=== PATIENT | male | born 1975 | race Caucasian/White ===

== ENCOUNTER 2017-10-11 06:29 | Day surgery (SDC) | payer BC, OTHER ==
[2017-10-10 11:47] VITALS: BMI 37.1
[~2017-10-11 06:29] MED LIST: ACETAMINOPHEN TAB 500 MG TAB PO ONE; DEXAMETHASONE SOD PHOSPHATE 10 MG/ML 1 ML VIAL IV ONE; LACTATED RINGERS 1,000 ML IV SCH; MELOXICAM 7.5 MG TAB PO ONE; MIDAZOLAM 2 MG/2 ML VIAL IV PRN; MORPHINE SULFATE 4 MG/ML SYRINGE IV PRN; ONDANSETRON 4 MG/2 ML VIAL IVP ONE; SCOPOLAMINE 1.5MG/72HR PATCH TRANSDERM ONE; TRANEXAMIC ACID 1,000 MG in SODIUM CHLORIDE 0.9% 50 ML IVPB ONE; ceFAZolin IN SWFI 2 GM/20 ML SYRINGE IVP ONE
[2017-10-11 06:56] VITALS: RESP 16
[2017-10-11] MEDS ORDERED: LIDOCAINE 1% 20 ML VIAL (10MG/ML) FOR IV START INTRADERMA ONE (07:16)
[2017-10-11] MEDS ORDERED: KETOROLAC 30 MG/ML 1 ML VIAL ONE (08:16)
[2017-10-11] MEDS ORDERED: SUCCINYLCHOLINE CHLORIDE 100 MG/5 ML SYR IV ONE (08:16)
[2017-10-11] MEDS ORDERED: PROPOFOL 10 MG/ML 20 ML VIAL IV ONE (08:16)
[2017-10-11] MEDS ORDERED: MIDAZOLAM 2 MG/2 ML VIAL ONE (08:16)
[2017-10-11] MEDS ORDERED: LIDOCAINE 1% INJ 10MG/ML (20 ML MDV) ONE (08:16)
[2017-10-11] MEDS ORDERED: fentaNYL (PF) 50 MCG/ML 2 ML AMP ONE (08:16)
[2017-10-11] MEDS ORDERED: MORPHINE SULFATE 10 MG/ML SYRINGE ONE (08:16)
[2017-10-11 10:13] VITALS: TEMP 98
[2017-10-11] MEDS ORDERED: HYDROcodone/APAP 10-325MG 1 EACH TAB PO ONE (11:24)
[2017-10-11 11:44] VITALS: BP 119/83; PULSE 105
--- NOTE | 2017-10-11 12:13 | P.OP ---
Date of Procedure: 10/11/17 Procedure(s) Performed: PREOPERATIVE DIAGNOSES: 1. Left elbow distal biceps rupture POSTOPERATIVE DIAGNOSES: 1. Left elbow distal biceps rupture PROCEDURES PERFORMED: 1. Left elbow distal biceps repair (tension-slide technique with biceps button and 7x10 mm PEEK interference screw) ANESTHESIA: medical transcription radiology: Janice Guillaume PA-C (assistance with: patient positioning, retraction, fixation, hemostasis, closure, dressing) COMPLICATIONS: None ESTIMATED BLOOD LOSS: Less than 10 cc TOURNIQUET: Placed, but not used DISPOSITION: To post-anesthesia care unit INDICATIONS: Michael is a 41-year-old male with a 10 day history of left distal biceps rupture. The patient presents to the operating room for surgical repair. I have explained the details of this surgery thoroughly and also explained the potential risks and complications. These are inclusive of, but not limited to: bleeding, infection, scarring, discomfort, blood vessel and nerve damage, stiffness, weakness, need for further surgery, failure to relieve symptoms, persistence or worsening of problems, , and other risks. Patient is aware of these risks and agrees to proceed with surgery. The consent form has been signed. PROCEDURE: Appropriate consent was obtained from the patient, who was then taken to the operating room and placed in the supine position. General anesthetic was administered. The left upper extremity was prepped and draped in the usual aseptic fashion using Duraprep. The pneumotourniquet was placed high on the arm but was not inflated throughout the case. An incision approximately 4 cm in length was made on the volar aspect of the proximal forearm about 3 cm from the flexion crease. The incision was taken down through skin and then bluntly through subcutaneous tissue to fascia. Hemostasis was attained with electrocautery. The lateral antebrachial cutaneous nerve was clearly identified, mobilized and retracted gently throughout the case. Deeper dissection into the antecubital fossa was performed bluntly with dissecting scissors. The sheath of the biceps was noted to be intact. The sheath and a portion of the lacertus was incised and the torn biceps tendon was grasped and brought out of the sheath. The tendon was debrided of scar tissue and organizing tissue and sized to fit through a 7 mm sheath. A Fiberloop was used to whipstitch and lock the tendon for 2.5 cm at the stump. An ink za was placed 1.5 cm from the end. Attention was then given to dissecting down to the radial tuberosity. Since the sheath was still intact, it was found easily. The forearm was placed into full supination and the elbow in extension. The radial tuberosity was exposed with subperiosteal retractors placed medially and laterally. The retractors were closely observed to be subperiosteal to not damage the posterior interrosseous nerve. A rongeur was used to clear the soft tissue from the radial tuberosity. Next, a 3.2 mm guide pin was placed through the the radial tuberosity bicortically. The pin was aimed 30 degrees ulnar to avoid PIN nerve injury. An 8mm reamer was used over the guide pin to create the socket for the biceps tendon. Copious irrigation was used to flush out bone debris. The sutures from the biceps tendon whipstitch were then threaded through the biceps button and the button was inserted onto the insertion handle. The button was then deployed through the far side of the socket and flipped to engage the far cortex. The button was confirmed to be engaged by pulling on the sutures. The two free ends were then used to pull the biceps tendon stump into the socket with the elbow at approximately 30 degrees of flexion. Once the tendon was noted to be at the level of the ink za, one suture was brought through the tendon with a free needle and the sutures were tied together. The 7 x 10 mm PEEK interference screw was then deployed on the radial side of the tendon after threading one of the sutures through the [employer]. The screw was inserted until flush with the radial surface and then the sutures were tied over the screw. The repair was then checked for integrity and found to be solid. The elbow was taken through full range of motion including pronation and supination with completely stable repair site. Subsequently, thorough irrigation was used and final hemostasis was obtained using electrocautery. 3-0 Vicryl suture was used to close the subcutaneous tissue, and running strata fix 3-0 subcuticular stitch for the skin. Cyanoacrylate closure was also performed. The arm was then placed into a sling and the patient was transferred to recovery room in stable condition. Sponge and needle counts were correct.
== END 2017-10-11 12:01 | disposition home or self-care (01) ==
LOC: OR 06:29
PROVIDERS: ATTEND Orthopaedic Surgery
DX: S46.212A Strain of muscle, fascia and tendon of other parts of biceps, left arm, initial encounter (principal); S50.12XA Contusion of left forearm, initial encounter; W01.0XXA Fall on same level from slipping, tripping and stumbling without subsequent striking against object, initial encounter; F32.9 Major depressive disorder, single episode, unspecified; K90.0 Celiac disease; K21.9 Gastro-esophageal reflux disease without esophagitis; Z79.891 Long term (current) use of opiate analgesic; Z79.899 Other long term (current) drug therapy
CPT/HCPCS: 24342; C1713 ×2; J2250; J1100; J2270; J2405; J2001; J3010; J1885; J0330; J2704

== ENCOUNTER → 2017-10-31 | Outpatient (CLI) | payer OTHER ==
--- NOTE | 2017-10-31 18:04 | US ---
EXAMINATION TYPE: US venous doppler duplex UE LT DATE OF EXAM: 10/31/2017 COMPARISON: NONE CLINICAL HISTORY: M25.522 pain left upper arm. Left arm edema tendon surgery 10/11/2017 Exam somewhat limited due to swelling. SIDE PERFORMED: Left Left Arm: Negative for DVT No evidence of DVT left arm. IMPRESSION: No evidence of deep venous thrombosis in the left arm.
== END ==
LOC: RADUSMAIN 16:54
PROVIDERS: ATTEND Orthopaedic Surgery
DX: M66.822 Spontaneous rupture of other tendons, left upper arm (principal); Z98.890 Other specified postprocedural states; M25.522 Pain in left elbow